=== PATIENT | male | born 1965 | race Caucasian/White ===

== ENCOUNTER 2016-05-06 16:28 | Emergency (ER) | payer OTHER ==
--- NOTE | 2016-05-06 20:41 | ED CLINICAL REPORT ---
Clinical Report - Physicians/Mid Levels [facility] [address] [place] [address] 05/06/2016 16:30 Patient: GUMARO CALLEJAS Time Seen: 16:58. Arrived- By private vehicle. Historian- patient. HISTORY OF PRESENT ILLNESS Chief Complaint: VOMITING. At its maximum, severity described as moderate. When seen in the E.D., severity described as moderate. Modifying factors. Not worsened by anything. Not relieved by anything. This started yesterday and is still present. It is described as cramping and it is described as located in the upper abdomen. The patient has had nausea, loss of appetite and vomiting. No diarrhea. (Pt has noticed redness and pain in his RLE.). He has had recent travel- [place] (Pt was in [place] for work last week, and returned a few days ago.). Similar symptoms previously: Occasionally. Recent medical care: Not recently seen/assessed. REVIEW OF SYSTEMS No constipation, black stools, hematemesis, difficulty with urination or pain with urination. No urinary frequency, bloody stools, fever, headache or sore throat. No blurred vision, chest pain, difficulty breathing, cough or joint pain. No skin rash, chills or back pain. All systems otherwise negative, except as recorded above. PAST HISTORY Problems: Sleep Apnea. Recent Travel. Hypertension. Hypercholesterolemia. Eczema. Additional Surgeries: Foot surgery. Vasectomy. Medications: Lipitor Oral (Tablet 20 mg) 1 tablet, daily. Lisinopril-Hydrochlorothiazide Oral (Tablet 20-25 mg) 1 tablet. Allergies: No Known Drug Allergy. SOCIAL HISTORY Never smoker. Occasional alcohol use. No drug use. ADDITIONAL NOTES The nursing notes have been reviewed. PHYSICAL EXAM Vital Signs: 05/06/2016 17:02 BP: 118/67. HR: 114. RR: 20. O2 saturation: 95%. Temp: 101 F. Pain level now: 6/10. Have been reviewed. Appearance: Alert. Oriented X3. No acute distress. Eyes: Pupils equal, round and reactive to light. Eyes normal inspection. ENT: Nose normal. Neck: Normal inspection. CVS: Normal heart rate and rhythm. Heart sounds normal. Pulses normal. Respiratory: No respiratory distress. Breath sounds normal. Abdomen: Soft and nontender. Obese. Back: Normal inspection. No CVA tenderness. Skin: Skin warm and dry. (Pt has cellulitis involving a large portion of his RLE. No fluctuance. Warmth and mild swelling are noted.). Extremities: Extremities exhibit normal ROM. No calf tenderness. No lower extremity edema. Neuro: Oriented X 3. No motor deficit. No sensory deficit. LABS, X-RAYS, AND EKG Laboratory Tests: CBC w Diff: (BALBIR: 05/06/2016 17:30) ( MsgRcvd 05/06/2016 17:54) Final results Test Result Flag Units (Reference) WHITE BLOOD COUNT 15.2 H K/uL (4.5-11.5) RED BLOOD COUNT 4.59 M/uL (4.50-5.90) HEMOGLOBIN 13.7 gm/dL (13.5-17.5) HEMATOCRIT 39.6 L % (41.0-53.0) MEAN CELL VOLUME 86 fL (80-100) MEAN CORPUSCULAR HGB 30 pg (26-34) MEAN CORPUSCULAR HGB CONC 35 g/dL (31-37) RED CELL DISTRIBUTION WIDTH 14.4 % (11.6-14.8) PLATELET COUNT 143 L K/uL (150-400) NEUTROPHIL % 93.2 H % (50-75) LYMPH % 3.0 L % (25-40) MONO % 3.7 % (3-14) EOSINOPHIL % 0 % (0-4) BASOPHIL % 0.1 % (0-2) CMP: (BALBIR: 05/06/2016 17:30) ( MsgRcvd 05/06/2016 18:02) Final results Test Result Flag Units (Reference) GLUCOSE 135 H mg/dL (70-110) BUN 30 H mg/dL (7-18) CREATININE 1.4 H mg/dL (0.6-1.3) Estimated GFR 56.79 mL/min Estimated GFR- >60 mL/min Note: Persistent reduction over 3 months in eGFR<60 mL/min/1.73 m2 defines CKD. Patients with eGFR values>=60 mL/min/1.73 m2 may also have CKD if evidence ofpersistent proteinuria. Additional information may be foundat www.kidney.org. SODIUM 120 L mmol/L (136-145) POTASSIUM 3.1 L mmol/L (3.5-5.1) CHLORIDE 96 L mmol/L (98-107) CARBON DIOXIDE 25 mmol/L (21-32) CALCIUM 9.1 mg/dL (8.5-10.1) TOTAL PROTEIN 7.9 g/dL (6.4-8.2) ALBUMIN 3.5 g/dL (3.3-5.0) BILIRUBIN, TOTAL 1.5 H mg/dL (0.0-1.0) ALKALINE PHOSPHATASE 47 U/L (46-116) AST (SGOT) 31 U/L (15-37) ALT (SGPT) 45 U/L (12-78) Rapid Influenza Screen: (BALBIR: 05/06/2016 17:30) ( MsgRcvd 05/06/2016 18:02) Final results SPECIMEN DESCRIPTION: SWAB Test Result Flag Units (Reference) RAPID INFLUENZA SCREEN DATE: 05/06/16 INFLUENZA A: NEGATIVE SCREEN FOR INFLUENZA A INFLUENZA B: NEGATIVE SCREEN FOR INFLUENZA B . Pulse Oximetry: 05/06/2016 17:02 O2 saturation: 95%. (FIO2 - room air). Interpretation: normal. PROGRESS AND PROCEDURES Course of Care: PT was worked up, and started on IV vancomycin for his cellulitis. He was also given Zofran and a liter of NS. Pt was found to have a leukocytosis, but work-up was otherwise negative. I felt pt could be discharged on Bactrim. He has been given indications for return. Patient and spouse counseled in person regarding the patient's stable condition, test results, diagnosis and need for follow-up. Concerns were addressed. Old medical records reviewed. Disposition: Discharged. Condition: stable and improved. CLINICAL IMPRESSION Vomiting with nausea. Cellulitis of the left lower leg. INSTRUCTIONS Do not work for three days. Drink plenty of fluids. Warnings: GENERAL WARNINGS: Return or contact your physician immediately if your condition worsens or changes unexpectedly, if not improving as expected, or if other problems arise. Your Current Medications: CONTINUE TAKING THE FOLLOWING MEDICATIONS: Lipitor Oral : Tablet 20 mg, 1 tablet daily. Lisinopril-Hydrochlorothiazide Oral : Tablet 20-25 mg, 1 tablet. Prescription Medications: Cephalexin 500 mg: take 1 capsule orally every 6 hours for 7 days. No refill. Bactrim DS 800 mg / 160 mg: take 1 tablet orally every 12 hours for 7 days. No refill. Substitution is permissible. Follow-up: Follow up with your doctor in seven days if not better. Understanding of the discharge instructions verbalized by patient and family. (Electronically signed by Nathaly Mena MD 05/11/2016 6:20)
--- NOTE | 2016-05-06 20:41 | ED NURSING NOTES ---
Clinical Report - Nurses [facility] [address] [place] [address] 05/06/2016 16:30 [id number] TRI[facility] Triage time 17:02 May 06 2016. Acuity: LEVEL 3. Chief Complaint: ABDOMINAL PAIN, NAUSEA and VOMITING. Alert. No acute distress. --17:10 Yoon Steel R.N. 17:02 05/06/16. BP: 118/67. HR: 114. RR: 20. O2 saturation: 95%. Temp: 101 F. Pain level now: 08/18. --17:10 Yoon Steel R.N. Weight: 127 kg stated. Height/Length: 67 inches Per Patient. BMI: 43.9. --17:28 Yoon Steel R.N. Medications Lisinopril-Hydrochlorothiazide Oral (Tablet 20-25 mg) 1 tablet. --17:03 Yoon Steel R.N. Lipitor Oral (Tablet 20 mg) 1 tablet, daily. --17:04 Yoon Steel R.N. Allergies No Known Drug Allergy. --17:05 Yoon Steel R.N. History Arrived by private vehicle, and accompanied by family. This started yesterday. ( pt also c/o left groin pain radiating down left leg). He has had nausea, vomiting, diarrhea and abdominal pain. Last oral intake by patient was liquid this morning. Treatment KEG FILLER: None. PAST MEDICAL HX: Immunizations: up-to-date. SOCIAL HX: Never smoker. Occasional alcohol use. Last drink was 2 days ago. Recent travel by airplane- [place] (04/21/2016). FALL RISK ASSESSMENT: Fall risk assessment completed. No fall risk identified. NUTRITIONAL RISK ASSESSMENT: The nutritional risk assessment revealed no deficiencies. FUNCTIONAL ASSESSMENT: Functional assessment: no impairments noted. LEARNING NEEDS ASSESSMENT: The learning needs assessment revealed no barriers. --17:10 Yoon Steel R.N. PROBLEMS: Hypertension. Hypercholesterolemia. Eczema. --17:06 Yoon Steel R.N. Sleep Apnea. --17:12 Yoon Steel R.N. ADDITIONAL SURGERIES: Foot surgery. Vasectomy. Vesectomy. --17:06 Yoon Steel R.N. Interventions ID band on patient. To room. --17:10 Yoon Steel R.N. PHYSICAL ASSESSMENT GENERAL / NEURO / PSYCH: Alert. Appears in no acute distress. RESPIRATORY: Respirations not labored. CVS: Capillary refill less than 2 seconds. GI / : The patient has had nausea and diarrhea. SKIN: Skin is warm and dry. --17:11 Yoon Steel R.N. NURSING PROGRESS NOTES Two patient identifiers checked. Call light placed in reach. Side rails up x 1. Bed placed in lowest position. Brakes of bed on. Patient ready for evaluation- chart flagged. --17:11 Yoon Steel R.N. 17:29 05/06/2016 Site #1 started via IV in the right hand with an 20g angiocath, with aseptic technique and good blood return; two attempts. Blood drawn: rainbow set. Labeled in the presence of the patient and sent to the lab. Saline lock flushed with 10 mL saline. --17:29 Yoon Steel R.N. Patient gowned. Head of bed elevated. --17:29 Yoon Steel R.N. 17:33 05/06/2016 Started bag #1 1000 mL IV Fluids IV NS (Saline); at 250 mL/hr over 4 hour(s) via site #1 via IV pump. Allergies verified and confirmed 5 rights. IV patency established. IV site checked: no pain, redness, or swelling. IV flushed thoroughly pre- and post-medication administration. --17:43 Yoon Steel R.N. 17:49 05/06/2016 Zofran (Ondansetron HCl) IVP 4 mg given over 2 minute(s) via site #1. Allergies verified and confirmed 5 rights. IV patency established. IV site checked: no pain, redness, or swelling. IV flushed thoroughly pre- and post-medication administration. --17:49 Yoon Steel R.N. 18:15 05/06/2016 Zofran IVP Response: no adverse reaction symptoms have improved the patient feels better. --18:15 Yoon Steel R.N. 19:44 05/06/16. BP: 117/55. HR: 113. O2 saturation: 98%. Temp: 100.3 F. Pain level now: 06/18. --19:45 Yoon Steel R.N. Two patient identifiers checked. Call light placed in reach. Side rails up x 1. Bed placed in lowest position. Brakes of bed on. --19:45 Yoon Steel R.N. 20:04 05/06/2016 Started 0.5 gm of Vancomycin IVPB in bag #1 200 mL; at 200 mL/hr over 30 minute(s) via site #1 via IV pump. Allergies verified and confirmed 5 rights. IV patency established. IV site checked: no pain, redness, or swelling. IV flushed thoroughly pre- and post-medication administration. --20:04 Yoon Steel R.N. 20:38 05/06/2016 Vancomycin IVPB Bag Change: bag #1 infused. Total amount infused: 100. STARTED bag #2 (250 mL) at 200 mL/hr via IV pump. Confirmed 5 rights. IV patency established. IV site checked: no pain, redness, or swelling. IV flushed thoroughly. --20:38 Leah Lugo R.N. 21:14 05/06/2016 IV Saline Lock Drip IV Discontinued: bag #1 completed. IV patency established. IV site checked: no pain, redness, or swelling. IV flushed thoroughly. --21:14 Yoon Steel R.N. 21:58 05/06/2016 IV Fluids IV NS Discontinued: bag #1 completed upon arrival. Total amount infused: 1000 mL. IV patency established. IV site checked: no pain, redness, or swelling. IV flushed thoroughly. --21:58 Serg Fuentes R.N. 21:58 05/06/2016 Vancomycin IVPB Discontinued: bag #1 infused upon discharge. Total amount infused: 500 mL. IV patency established. IV site checked: no pain, redness, or swelling. IV flushed thoroughly. --21:58 Serg Fuentes R.N. DISPOSITION / DISCHARGE 21:54 05/06/2016 Site #1 removed upon admission. Catheter intact. Bandaid applied. --21:54 Serg Fuentes R.N. Departure time: 21:54. Condition at departure: improved. No learning barriers present. Discharge instructions provided and reviewed with the patient. Reviewed warnings. Reviewed medication(s). Work note given. Patient verbalized understanding. Written instructions provided in Guyanese. The patient was discharged by the physician. He was discharged home and accompanied by spouse. He left the Emergency Department ambulatory and via private vehicle. Spouse driving. --21:57 eSrg Fuentes R.N. 21:50 05/06/16. BP: 133/59. HR: 101. RR: 18. O2 saturation: 99%. Temp: 98.1 F. Pain level now 3/10. --21:57 Serg Fuentes R.N. Locked/Released at 05/06/2016 21:58 by Serg Fuentes R.N.
--- NOTE | 2016-05-06 20:41 | ED ORDER SUMMARY ---
..... Patient: GUMARO CALLEJAS OrderSheet [facility] VisitID: [id number] [place] [address] 51y, M Registration Date/Time: 05/06/2016 ORDER SHEET Weight: 127.0 kg (stated) Allergies: No Known Drug Allergy GENERAL ORDERS: Rapid Influenza Screen (Nasal Pharyngeal) (swab) Urgent (17:38 05/06/2016 KKnebel R.N. per protocol) (Ack 18:06 RKaruga) (18:13 KKnebel R.N.) CBC w Diff Urgent (17:39 05/06/2016 KKnebel R.N. per protocol) (Ack 18:06 RKaruga) (18:13 KKnebel R.N.) CMP Urgent (17:39 05/06/2016 KKnebel R.N. per protocol) (Ack 18:06 RKaruga) (18:13 KKnebel R.N.) NPO (17:39 05/06/2016 KKnebel R.N. per protocol) (18:13 KKnebel R.N.) MEDICATION ORDERS: IV FLUIDS: IV Saline Lock (17:39 05/06/2016 KKnebel R.N. per protocol) (17:42 KKnebel R.N.) IV NS with Normal Saline 1 Liter: initial bolus none -, then 250 mL/hr for 4h (NOW) (17:41 05/06/2016 KKnebel R.N. per protocol) (17:43 KKnebel R.N.) Zofran IV 4 mg (NOW) (17:46 05/06/2016 KKnebel R.N. per protocol) (17:49 KKnebel R.N.) Vancomycin IV 1.5 gm/500 mL (NOW) (19:24 05/06/2016 Celi GUILLEN) (20:04 KKnebel R.N.) ORDER SHEET NOTES: Reason for Study: Nausea & Vomiting Reason for Study: Nausea & Vomiting Reason for Study: Nausea & Vomiting [Electronically signed by Serg Fuentes R.N. (21:58 05/06/2016)] [Electronically signed by Nathaly Mena MD (06:20 05/11/2016)] [Electronically locked/signed by Serg Fuentes R.N. (21:58 05/06/2016)]
--- NOTE | 2016-05-06 20:41 | ED ORDER SUMMARY ---
..... Patient: GUMARO CALLEJAS OrderSheet [facility] VisitID: [id number] [place] [address] 51y, M Registration Date/Time: 05/06/2016 ORDER SHEET Weight: 127.0 kg (stated) Allergies: No Known Drug Allergy GENERAL ORDERS: Rapid Influenza Screen (Nasal Pharyngeal) (swab) Urgent (17:38 05/06/2016 KKnebel R.N. per protocol) (Ack 18:06 RKaruga) (18:13 KKnebel R.N.) CBC w Diff Urgent (17:39 05/06/2016 KKnebel R.N. per protocol) (Ack 18:06 RKaruga) (18:13 KKnebel R.N.) CMP Urgent (17:39 05/06/2016 KKnebel R.N. per protocol) (Ack 18:06 RKaruga) (18:13 KKnebel R.N.) NPO (17:39 05/06/2016 KKnebel R.N. per protocol) (18:13 KKnebel R.N.) MEDICATION ORDERS: IV FLUIDS: IV Saline Lock (17:39 05/06/2016 KKnebel R.N. per protocol) (17:42 KKnebel R.N.) IV NS with Normal Saline 1 Liter: initial bolus none -, then 250 mL/hr for 4h (NOW) (17:41 05/06/2016 KKnebel R.N. per protocol) (17:43 KKnebel R.N.) Zofran IV 4 mg (NOW) (17:46 05/06/2016 KKnebel R.N. per protocol) (17:49 KKnebel R.N.) Vancomycin IV 1.5 gm/500 mL (NOW) (19:24 05/06/2016 Celi GUILLEN) (20:04 KKnebel R.N.) ORDER SHEET NOTES: Reason for Study: Nausea & Vomiting Reason for Study: Nausea & Vomiting Reason for Study: Nausea & Vomiting [Electronically signed by Serg Fuentes R.N. (21:58 05/06/2016)] [Electronically signed by Nathaly Mena MD (06:20 05/11/2016)] [Electronically locked/signed by Serg Fuentes R.N. (21:58 05/06/2016)]
--- NOTE | 2016-05-06 20:41 | ED NURSING NOTES ---
Clinical Report - Nurses [facility] [address] [place] [address] 05/06/2016 16:30 [id number] Triage time 17:02 May 06 2016. Acuity: LEVEL 3. Chief Complaint: ABDOMINAL PAIN, NAUSEA and VOMITING. Alert. No acute distress. --17:10 Yoon Steel R.N. 17:02 05/06/16. BP: 118/67. HR: 114. RR: 20. O2 saturation: 95%. Temp: 101 F. Pain level now: 08/18. --17:10 Yoon Steel R.N. Weight: 127 kg stated. Height/Length: 67 inches Per Patient. BMI: 43.9. --17:28 Yoon Steel R.N. Medications Lisinopril-Hydrochlorothiazide Oral (Tablet 20-25 mg) 1 tablet. --17:03 Yoon Steel R.N. Lipitor Oral (Tablet 20 mg) 1 tablet, daily. --17:04 Yoon Steel R.N. Allergies No Known Drug Allergy. --17:05 Yoon Steel R.N. History Arrived by private vehicle, and accompanied by family. This started yesterday. ( pt also c/o left groin pain radiating down left leg). He has had nausea, vomiting, diarrhea and abdominal pain. Last oral intake by patient was liquid this morning. Treatment COLORIST PHOTOGRAPHY: None. PAST MEDICAL HX: Immunizations: up-to-date. SOCIAL HX: Never smoker. Occasional alcohol use. Last drink was 2 days ago. Recent travel by airplane- [place] (04/21/2016). FALL RISK ASSESSMENT: Fall risk assessment completed. No fall risk identified. NUTRITIONAL RISK ASSESSMENT: The nutritional risk assessment revealed no deficiencies. FUNCTIONAL ASSESSMENT: Functional assessment: no impairments noted. LEARNING NEEDS ASSESSMENT: The learning needs assessment revealed no barriers. --17:10 Yoon Steel R.N. PROBLEMS: Hypertension. Hypercholesterolemia. Eczema. --17:06 Yoon Steel R.N. Sleep Apnea. --17:12 Yoon Steel R.N. ADDITIONAL SURGERIES: Foot surgery. Vasectomy. Vesectomy. --17:06 Yoon Steel R.N. Interventions ID band on patient. To room. --17:10 Yoon Steel R.N. PHYSICAL ASSESSMENT GENERAL / NEURO / PSYCH: Alert. Appears in no acute distress. RESPIRATORY: Respirations not labored. CVS: Capillary refill less than 2 seconds. GI / : The patient has had nausea and diarrhea. SKIN: Skin is warm and dry. --17:11 Yoon Steel R.N. NURSING PROGRESS NOTES Two patient identifiers checked. Call light placed in reach. Side rails up x 1. Bed placed in lowest position. Brakes of bed on. Patient ready for evaluation- chart flagged. --17:11 Yoon Steel R.N. 17:29 05/06/2016 Site #1 started via IV in the right hand with an 20g angiocath, with aseptic technique and good blood return; two attempts. Blood drawn: rainbow set. Labeled in the presence of the patient and sent to the lab. Saline lock flushed with 10 mL saline. --17:29 Yoon Steel R.N. Patient gowned. Head of bed elevated. --17:29 Yoon Steel R.N. 17:33 05/06/2016 Started bag #1 1000 mL IV Fluids IV NS (Saline); at 250 mL/hr over 4 hour(s) via site #1 via IV pump. Allergies verified and confirmed 5 rights. IV patency established. IV site checked: no pain, redness, or swelling. IV flushed thoroughly pre- and post-medication administration. --17:43 Yoon Steel R.N. 17:49 05/06/2016 Zofran (Ondansetron HCl) IVP 4 mg given over 2 minute(s) via site #1. Allergies verified and confirmed 5 rights. IV patency established. IV site checked: no pain, redness, or swelling. IV flushed thoroughly pre- and post-medication administration. --17:49 Yoon Steel R.N. 18:15 05/06/2016 Zofran IVP Response: no adverse reaction symptoms have improved the patient feels better. --18:15 Yoon Steel R.N. 19:44 05/06/16. BP: 117/55. HR: 113. O2 saturation: 98%. Temp: 100.3 F. Pain level now: 06/18. --19:45 Yoon Steel R.N. Two patient identifiers checked. Call light placed in reach. Side rails up x 1. Bed placed in lowest position. Brakes of bed on. --19:45 Yoon Steel R.N. 20:04 05/06/2016 Started 0.5 gm of Vancomycin IVPB in bag #1 200 mL; at 200 mL/hr over 30 minute(s) via site #1 via IV pump. Allergies verified and confirmed 5 rights. IV patency established. IV site checked: no pain, redness, or swelling. IV flushed thoroughly pre- and post-medication administration. --20:04 Yoon Steel R.N. 20:38 05/06/2016 Vancomycin IVPB Bag Change: bag #1 infused. Total amount infused: 100. STARTED bag #2 (250 mL) at 200 mL/hr via IV pump. Confirmed 5 rights. IV patency established. IV site checked: no pain, redness, or swelling. IV flushed thoroughly. --20:38 Leah Lugo R.N. 21:14 05/06/2016 IV Saline Lock Drip IV Discontinued: bag #1 completed. IV patency established. IV site checked: no pain, redness, or swelling. IV flushed thoroughly. --21:14 Yoon Steel R.N. 21:58 05/06/2016 IV Fluids IV NS Discontinued: bag #1 completed upon arrival. Total amount infused: 1000 mL. IV patency established. IV site checked: no pain, redness, or swelling. IV flushed thoroughly. --21:58 Serg Fuentes R.N. 21:58 05/06/2016 Vancomycin IVPB Discontinued: bag #1 infused upon discharge. Total amount infused: 500 mL. IV patency established. IV site checked: no pain, redness, or swelling. IV flushed thoroughly. --21:58 Serg Fuentes R.N. DISPOSITION / DISCHARGE 21:54 05/06/2016 Site #1 removed upon admission. Catheter intact. Bandaid applied. --21:54 Serg Fuentes R.N. Departure time: 21:54. Condition at departure: improved. No learning barriers present. Discharge instructions provided and reviewed with the patient. Reviewed warnings. Reviewed medication(s). Work note given. Patient verbalized understanding. Written instructions provided in Cook Islander. The patient was discharged by the physician. He was discharged home and accompanied by spouse. He left the Emergency Department ambulatory and via private vehicle. Spouse driving. --21:57 Serg Fuentes R.N. 21:50 05/06/16. BP: 133/59. HR: 101. RR: 18. O2 saturation: 99%. Temp: 98.1 F. Pain level now 3/10. --21:57 Serg Fuentes R.N. Locked/Released at 05/06/2016 21:58 by Serg Fuentes R.N.
--- NOTE | 2016-05-11 06:20 | ED DISCHARGE INSTRUCTIONS ---
Patient: GUMARO CALLEJAS General Instructions [facility] VisitID: [id number] [place] [address] 51y, M Registration Date/Time: 05/06/2016 Vomiting with nausea. Cellulitis of the left lower leg. INSTRUCTIONS Do not work for three days. Drink plenty of fluids. Warnings: GENERAL WARNINGS: Return or contact your physician immediately if your condition worsens or changes unexpectedly, if not improving as expected, or if other problems arise. Your Current Medications: CONTINUE TAKING THE FOLLOWING MEDICATIONS: Lipitor Oral : Tablet 20 mg, 1 tablet daily. Lisinopril-Hydrochlorothiazide Oral : Tablet 20-25 mg, 1 tablet. Prescription Medications: Cephalexin 500 mg: take 1 capsule orally every 6 hours for 7 days. No refill. Bactrim DS 800 mg / 160 mg: take 1 tablet orally every 12 hours for 7 days. No refill. Substitution is permissible. Follow-up: Follow up with your doctor in seven days if not better. Understanding of the discharge instructions verbalized by patient and family. ADDITIONAL INFORMATION Cellulitis You have an infection of the skin known as cellulitis. This usually starts with a scrape, cut, insect bite, blister or other opening in the skin which becomes infected. This is a serious condition. It must be watched closely to be sure the infection is not spreading. With antibiotic treatment, the size of the red area will gradually shrink in size until the skin returns to normal. This will take 7-10 days. The red area should never increase in size once the antibiotic medicine has been started. Occasionally, an infection will be resistant to one antibiotic and another one will have to be used. Home Care: 1) Limit the use of the affected part, since excess movement can cause the infection to spread. 2) If the infection is on your leg, walk as little as possible during the first few days of the treatment. Keep your leg elevated while sitting. This will reduce swelling. 3) Take all of the antibiotic medicine exactly as directed until it is gone. Be careful not to miss any doses, especially during the first seven days. Follow Up with your doctor or this facility as directed. Check the infected area daily for the warning signs listed below. Get Prompt Medical Attention if any of the following occur: -- Spreading area of redness -- Increasing swelling or pain -- Appearance of pus or drainage -- Fever over 100.4 F (38.0 C) oral, or over 101.4 F (38.6 C) rectal, after two days on antibiotics You have been given the following additional information: Cellulitis Do not work for three days. (Electronically signed by Nathaly Mena MD 05/11/2016 6:20)
--- NOTE | 2016-05-11 06:20 | ED MED RECONCILIATION SUMMARY ---
Patient: GUMARO CALLEJAS Medication Reconciliation Report [facility] VisitID: [id number] [address] [place] [address] 51y, M Registration Date/Time: 05/06/2016 Weight: 127.0 kg Height/Length: 67 in. BMI: 43.9 ALLERGIES: No Known Drug Allergy The patient's Home Medications are listed below: CONTINUE TAKING THE FOLLOWING MEDICATIONS: Lipitor Oral (20 mg) 1 tablet, daily Lisinopril-Hydrochlorothiazide Oral (20-25 mg) 1 tablet The source(s) of the original Home Medication information: Not obtained. The following Medications were given to the patient in the Emergency Department: IV NS IV Fluids bolus 0, then 250 mL/hr, administered: 05/06/2016 5:33:00 PM Zofran [IVP] IVP 4 mg, administered: 05/06/2016 5:49:00 PM Vancomycin [IVPB] IVPB bolus 0, then 0.5 gm 200 mL/hr, administered: 05/06/2016 8:04:00 PM The following Medications were prescribed to the patient: Cephalexin 500 mg: take 1 capsule orally every 6 hours for 7 days. No refill. -- Nathaly Mena MD Bactrim DS 800 mg / 160 mg: take 1 tablet orally every 12 hours for 7 days. No refill. Substitution is permissible. -- Nathaly Mena MD
--- NOTE | 2016-05-11 06:20 | ED MAR SUMMARY ---
..... Medication Administration Record [facility] [address] [place] [address] Patient: GUMARO CALLEJAS Visit ID: [id number] 51y, M Weight: 127.0 kg Height/Length: 67 in BMI: 43.9 ALLERGIES: No Known Drug Allergy Start 17:33 05/06/2016 Yoon Setel R.N., Stop 21:58 05/06/2016 Serg Fuentes R.N. Medication Administered: IV NS (SALINE), Dose: IV Fluids over 4 hour(s), Rate: 250 mL/hr, Dispensed: 1000 mL bag, Site: #1 right hand. Medication Ordered: IV NS with Normal Saline 1 Liter: initial bolus none -, then 250 mL/hr for 4h (NOW). Given 17:49 05/06/2016 Yoon Steel R.N. Medication Administered: ZOFRAN [IVP] (ONDANSETRON HCL), Dose: 4 mg IVP over 2 minute(s), Site: #1 right hand. Medication Ordered: Zofran IV 4 mg (NOW). Start 20:04 05/06/2016 Yoon Steel R.N., Stop 21:58 05/06/2016 Serg Fuentes R.N. Medication Administered: VANCOMYCIN [IVPB], Dose: 0.5 gm IVPB over 30 minute(s), Rate: 200 mL/hr, Dispensed: 200 mL bag, Site: #1 right hand. Medication Ordered: Vancomycin IV 1.5 gm/500 mL (NOW).
--- NOTE | 2016-05-11 06:20 | ED MAR SUMMARY ---
..... Medication Administration Record [facility] [address] [address] Patient: GUMARO CALLEJAS Visit ID: [id number] 51y, M Weight: 127.0 kg Height/Length: 67 in BMI: 43.9 ALLERGIES: No Known Drug Allergy Start 17:33 05/06/2016 Yoon Steel R.N., Stop 21:58 05/06/2016 Serg Fuentes R.N. Medication Administered: IV NS (SALINE), Dose: IV Fluids over 4 hour(s), Rate: 250 mL/hr, Dispensed: 1000 mL bag, Site: #1 right hand. Medication Ordered: IV NS with Normal Saline 1 Liter: initial bolus none -, then 250 mL/hr for 4h (NOW). Given 17:49 05/06/2016 Yoon Steel R.N. Medication Administered: ZOFRAN [IVP] (ONDANSETRON HCL), Dose: 4 mg IVP over 2 minute(s), Site: #1 right hand. Medication Ordered: Zofran IV 4 mg (NOW). Start 20:04 05/06/2016 Yoon Steel R.N., Stop 21:58 05/06/2016 Serg Fuentes R.N. Medication Administered: VANCOMYCIN [IVPB], Dose: 0.5 gm IVPB over 30 minute(s), Rate: 200 mL/hr, Dispensed: 200 mL bag, Site: #1 right hand. Medication Ordered: Vancomycin IV 1.5 gm/500 mL (NOW).
--- NOTE | 2016-05-11 06:20 | ED MED RECONCILIATION SUMMARY ---
Patient: GUMARO CALLEJAS Medication Reconciliation Report [facility] VisitID: [id number] [address] [place] [address] 51y, M Registration Date/Time: 05/06/2016 Weight: 127.0 kg Height/Length: 67 in. BMI: 43.9 ALLERGIES: No Known Drug Allergy The patient's Home Medications are listed below: CONTINUE TAKING THE FOLLOWING MEDICATIONS: Lipitor Oral (20 mg) 1 tablet, daily Lisinopril-Hydrochlorothiazide Oral (20-25 mg) 1 tablet The source(s) of the original Home Medication information: Not obtained. The following Medications were given to the patient in the Emergency Department: IV NS IV Fluids bolus 0, then 250 mL/hr, administered: 05/06/2016 5:33:00 PM Zofran [IVP] IVP 4 mg, administered: 05/06/2016 5:49:00 PM Vancomycin [IVPB] IVPB bolus 0, then 0.5 gm 200 mL/hr, administered: 05/06/2016 8:04:00 PM The following Medications were prescribed to the patient: Cephalexin 500 mg: take 1 capsule orally every 6 hours for 7 days. No refill. -- Nathaly Mena MD Bactrim DS 800 mg / 160 mg: take 1 tablet orally every 12 hours for 7 days. No refill. Substitution is permissible. -- Nathaly Mena MD
== END 2016-05-06 21:54 | disposition home or self-care (01) ==
LOC: ED SRH 16:28
DX: L03.116 Cellulitis of left lower limb (principal); R11.2 Nausea with vomiting, unspecified; I10 Essential (primary) hypertension
CPT/HCPCS: 90100; 91400; 95059